=== PATIENT | male | born 1980 | race African-American/Black ===

== ENCOUNTER 2016-05-31 14:52 | Emergency (ER) | payer OTHER ==
[~2016-05-31] VITALS: Ht 165.1 cm; Wt 81.7 kg
[2016-05-31] MEDS ORDERED: TESSALON PERLE100 MG PO (15:08)
[2016-05-31] MEDS ORDERED: TESSALON PERLE100 M1 PO (16:13)
[2016-05-31] MEDS ORDERED: MEDROLDOSEPACK PO (16:14)
[2016-05-31] MEDS ORDERED: PROVENTIL HFA6.7 G1 INH (16:14)
[2016-05-31 16:35] VITALS: BP 115/73
== END 2016-05-31 16:35 ==
LOC: ER 14:52
DX: J45.909 Unspecified asthma, uncomplicated (principal); F12.10 Cannabis abuse, uncomplicated